=== PATIENT | male | born 1960 | race Caucasian/White ===

== ENCOUNTER → 2020-12-12 | Outpatient (CLI) | payer BC, OTHER ==
[~2020-12-12] MED LIST: COZAAR 25 MG TA25 M2 PO; ELIQUIS5 MG PO; LASIX 40 MG TAB40 MG PO; OMEPRAZOLE 20 M20 M1 PO; TOPROL XL25 MG PO
== END ==
LOC: SJCVCIMAG 07:52 → EDSEX 09:52 → SJCVCIMAG 14:40
PROVIDERS: ATTEND Internal Medicine
DX: I08.3 Combined rheumatic disorders of mitral, aortic and tricuspid valves (principal); I27.20 Pulmonary hypertension, unspecified; I49.3 Ventricular premature depolarization; E78.5 Hyperlipidemia, unspecified; I48.91 Unspecified atrial fibrillation; I11.9 Hypertensive heart disease without heart failure; I77.89 Other specified disorders of arteries and arterioles; E11.9 Type 2 diabetes mellitus without complications; Z79.899 Other long term (current) drug therapy; Z87.891 Personal history of nicotine dependence

== ENCOUNTER 2020-12-14 12:54 | Inpatient (IN) | payer BC, OTHER ==
[~2020-12-14] VITALS: Ht 188 cm; Wt 151.3 kg
[2020-12-14] MEDS ORDERED: OMEPRAZOLE 20 M20 M1 PO (14:44)
[2020-12-14] MEDS ORDERED: COZAAR 25 MG TA25 M2 PO (14:45)
[2020-12-14] MEDS ORDERED: TOPROL XL25 MG PO (14:45)
[2020-12-14] MEDS ORDERED: ELIQUIS5 MG PO (14:46)
--- NOTE | 2020-12-14 18:52 | NUR ---
PT ARRIVED TO ROOM 1415. AFIB RATE CONTROLLED, ORIENTATION X4. DENIES CHEST PAIN. ONLY COMLAINT IS HUNGER. SEEN BY CARDIOLOGY PLAN FOR CATH TOMORROW.
[2020-12-14 21:21] VITALS: BP 124/91
[2020-12-14 23:44] VITALS: BP 155/91
[2020-12-15 04:57] LABS: HEMATOCRIT 41.8 % (42.0-52.0); HEMOGLOBIN 13.6 gm/dL (14.0-18.0); MCH 29.2 pg (26.0-34.0); MCHC 32.4 g/dL (28.0-37.0); MCV 89.9 fL (80.0-100.0); RBC 4.66 mil/uL (4.50-6.00); RDW 15.1 % (10.5-14.5); WBC 8.7 thou/uL (4.0-11.0)
[2020-12-15 05:18] LABS: ANION GAP 9 mmol/L (7-16); BUN 14 mg/dL (7-18); CALCIUM 8.8 mg/dL (8.5-10.1); CHLORIDE 105 mmol/L (98-107); CHOLESTEROL 151 mg/dL (<200); CO2 28 mmol/L (21-32); CREATININE 1.3 mg/dL (0.7-1.3); GLUCOSE 99 mg/dL (74-106); HDL CHOLESTEROL 37 mg/dL (>40); LDL CHOLESTEROL 96 mg/dL (<100); MAGNESIUM 2.3 mg/dL (1.8-2.4); POTASSIUM 4.1 mmol/L (3.5-5.1); SODIUM 142 mmol/L (136-145); TC:HDL 4.1 Ratio (Not establshd); TRIGLYCERIDE 94 mg/dL (<150); VLDL 19 mg/dL (<40)
[2020-12-15 05:27] LABS: SERUM ASSESSMENT Clear
--- NOTE | 2020-12-15 05:28 | NUR ---
ASSESSMENTS CHARTED, MEDS CHARTED GIVEN. PATIENT RESTING IN BED DURING SHIFT. PATIENT HAS BEEN NPO SINCE MIDNIGHT FOR VISIT TO THE [employer] DEVELOPER IN THE MORNING. PATIENT UP AT NATALIE IN ROOM. PATIENT REFUSED CPAP WHEN RESPIRATORY THERAPIST BROUGHT IT. FALL PRECAUTIONS IN PLACE DURING SHIFT.
[2020-12-15 05:37] VITALS: BP 129/68
--- NOTE | 2020-12-15 07:02 | EKG ---
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
[2020-12-15 08:07] VITALS: BP 123/73
--- NOTE | 2020-12-15 08:21 | NUR ---
ASSUMED PT CARE AT 0700. PT RESTING AT THIS TIME. 0800-ASSESSMENT PERFORMED CHARTED. VSS. PT INFORMED OF CENTER MEDICAL DIRECTOR THIS MORNING. WILL CONTINUE TO MONITOR AND FOLLOW POC.
--- NOTE | 2020-12-15 10:54 | NUR ---
PT IN [employer].
--- NOTE | 2020-12-15 11:40 | NUR ---
PT IN ROLLING ATTENDANT FOR NOON ASSESSMENT.
[2020-12-15 12:43] VITALS: BP 139/93
--- NOTE | 2020-12-15 12:46 | NUR ---
PT RETURNED FROM OUTSIDE SALES INSPECTOR WITH NO INTERVENTION AND RIGHT GROIN SITE. PT ON BEDREST UNTIL 1217. PTS GROIN SITE IS CLEAN DRY AND INTACT.
[2020-12-15 16:14] VITALS: BP 142/90
--- NOTE | 2020-12-15 16:21 | NUR ---
PT UP AND AMBULATING AROUND THE ROOM. ASSESSMENT UNCHANGED. GROIN SITE CLEAN DRY AND DRESSING INTACT. VSS. WILL CONTINUE TO MONITOR AND FOLLOW POC.
[2020-12-15 20:28] VITALS: BP 139/80
[2020-12-16 04:22] LABS: HEMOGLOBIN 13.7 gm/dL (14.0-18.0); MCH 29.1 pg (26.0-34.0); MCHC 32.7 g/dL (28.0-37.0); RBC 4.72 mil/uL (4.50-6.00); RDW 15.1 % (10.5-14.5); WBC 9.6 thou/uL (4.0-11.0)
[2020-12-16 04:25] LABS: CREATININE 1.3 mg/dL (0.7-1.3); MAGNESIUM 2.3 mg/dL (1.8-2.4); POTASSIUM 4.1 mmol/L (3.5-5.1)
[2020-12-16 04:27] VITALS: BP 137/81
--- NOTE | 2020-12-16 04:49 | NUR ---
ASSESSMENTS CHARTED, MEDS CHARTED GIVEN. PATIENT WENT TO ENVIRONMENTAL DEPARTMENT MANAGER DURING THE DAY, NO INTERVENTIONS WERE DONE. PATIENT OFF BEDREST PRIOR TO START OF SHIFT. DENIED PAIN. RIGHT GROIN SITE LOOKS GREAT. FALL PRECAUTIONS IN PLACE DURING SHIFT.
[2020-12-16 07:37] VITALS: BP 142/95
--- NOTE | 2020-12-16 10:00 | NUR ---
INITIAL ASSESSMENT THIS AM. PATIENT ALERT ORIENTED X4. QUITE PLEASANT. DENIES CHEST PAIN. STATES HE IS WILLING TO GO HOME TODAY. NOW RESTING IN BED.
[2020-12-16 11:04] VITALS: BP 137/69
[2020-12-16] MEDS ORDERED: LASIX 40 MG TAB40 MG PO (12:18)
[2020-12-16 12:56] VITALS: BP 137/69
== END 2020-12-16 13:27 | disposition home or self-care (01) | DRG 303 ==
LOC: 2N 12:54
PROVIDERS: ADMIT Internal Medicine; ATTEND Hospitalist
DX: I25.10 Atherosclerotic heart disease of native coronary artery without angina pectoris (principal); I48.21 Permanent atrial fibrillation; I10 Essential (primary) hypertension; I42.9 Cardiomyopathy, unspecified; E78.5 Hyperlipidemia, unspecified; I48.0 Paroxysmal atrial fibrillation; Z90.49 Acquired absence of other specified parts of digestive tract; Z79.82 Long term (current) use of aspirin; Z79.899 Other long term (current) drug therapy; Z87.891 Personal history of nicotine dependence
CPT/HCPCS: 10081

== ENCOUNTER 2021-01-01 11:05 | Observation (INO) | payer BC, OTHER ==
[~2021-01-01] VITALS: Ht 188 cm; Wt 143.8 kg
--- NOTE | 2021-01-01 13:09 | NUR ---
PATIENT ADMITTED 01/01/21 @ 1155 AM. ORIENTED TO ROOM AND UNIT PROCEDURES, WELCOME PACKET GIVEN, ASSESSMENT AND ADMISSION COMPLETED. WILL CONTINUE TO MONITOR AND LOOK FOR FUTURE ORDERS.
[2021-01-01 15:00] VITALS: BP 109/75
--- NOTE | 2021-01-01 17:39 | EKG ---
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1960 Requested By: Bernie Marie Order Number: [id number] MD: Ozzy Rodney Measurements Intervals [place] Rate: 99 P: ME: QRS: -16 QRSD: 105 T: 58 QT: 397 QTc: 510 Interpretive Statements Atrial fibrillation Borderline left axis deviation Prolonged QT interval Compared to ECG 12/14/2020 16:34:17 No significant changes Electronically Signed On 01-01-2021 17:39:47 CDT by Ozzy Rodney [email or web address] <ELECTRONICALLY SIGNED> By: Ozzy Rodney MD, [facility] 01/01/21 1739 D: [id number] Ozzy Rodney MD, FACC /EPI
--- NOTE | 2021-01-01 18:35 | NUR ---
CARDIOLOGY CONSULTED, AMIO BOLUS AND GTT ADMINISTERED IN ATTEMPTS TO CHEMICALLY CONVERT PATIENT FROM ATRIAL FIBRILLATION TO NORMAL SINUS RHYTHM. PLAN IS FOR A CARDIOCONVERSION IN AM IF UNSUCCESSFUL WITH CHEMICAL CONVERSION. PATIENT IS ALERT, AMBULATORY, AND HAS GOOD URINE OUTPUT. FALL RISK WITH GTT GOING, INSTRUCTED TO CALL BEFORE GETTING OUT OF BED.
[2021-01-01 19:50] VITALS: BP 120/73
[2021-01-01 23:00] VITALS: BP 129/83
[2021-01-02 04:20] VITALS: BP 125/88
--- NOTE | 2021-01-02 04:49 | NUR ---
SLEPT MOST OF SHIFT. UP AD NATALIE IN ROOM WITH STEADY GAIT. NPO PAST [place] FOR AM CARIDOVERSION. WORKING ON GOALS AND PLAN OF CARE FOR NOC. DENIES COMPLAINTS OF PAIN OR SHORTNESS OF AIR. CONTINUE TO ASSES CLOSELY.
[2021-01-02 07:40] VITALS: BP 100/57
--- NOTE | 2021-01-02 14:15 | NUR ---
1415-PT RESTING EASY. TAKING SIPS OF COKE WITHOUT DIFFICULTIES. AWAKENS EASILY ON VERBAL STIMULATION. NO VOICED COMPLAINTS.
[2021-01-02] MEDS ORDERED: PACERONE 200 M200 M1 PO ×2 (14:17→14:22)
[2021-01-02] MEDS ORDERED: ELIQUIS5 MG PO (14:20)
[2021-01-02] MEDS ORDERED: METOPROLOL SUCC25 M1 PO (14:22)
[2021-01-02] MEDS ORDERED: COZAAR 50 MG TA50 M1 PO (14:22)
[2021-01-02 14:55] VITALS: BP 108/67
[2021-01-02 16:24] VITALS: BP 108/67
--- NOTE | 2021-01-02 17:56 | NUR ---
ASSUMED CARE SHIFT CHANGE. VSS. ASSESSMENTS CHARTED. AMIO GTT CONTINUES. PT TO CARDIOVERSION THIS SHIFT.PT RETURNED APPROX 1430 IN SINUS RHYTHM. SPOUSE AT BEDSIDE. DC ORDERS. DISUCSSED WITH PT. COMMUNICATES UNDERSTANDING. IV REMOVED TELE REMOVED PT LEFT UNIT WITH ALL BELONGIGNS.
== END 2021-01-02 17:45 | disposition home or self-care (01) ==
LOC: 2N 11:05 → PRE 11:05 → 2N 11:05
PROVIDERS: ADMIT Internal Medicine; ATTEND Internal Medicine
DX: I48.91 Unspecified atrial fibrillation (principal); Z79.899 Other long term (current) drug therapy